=== PATIENT | female | born 1965 | race Caucasian/White ===

== ENCOUNTER 2020-08-22 16:43 | Inpatient (IN) ==
[2020-08-22] MEDS ORDERED: levoFLOXacin 750 MG/150 ML 750 MG/150 ML BAG IVPB ONE (16:59)
[2020-08-22] MEDS ORDERED: cefTRIAXone 1,000 MG in Water for inj. (sterile) 10 ML IVP ONE (17:15)
[2020-08-22] MEDS ORDERED: 0.9 % Sodium Chloride 1,000 ML IVC ONE (17:16)
[2020-08-22 17:32] LABS: Basophils % 0.4 %; Eosinophils # 0.1 K/mcL (0.0-0.6); Eosinophils % 0.7 %; Hematocrit 44.7 % (35.3-44.9); Hemoglobin 14.7 g/dL (11.5-15.4); Immature Granulocytes % 0.2 % (0-4); Lymphocytes # 1.6 K/mcL (0.6-4.6); Lymphocytes % 16.5 %; Mean Corpuscular HGB Conc 32.9 g/dL (31.6-35.5); Mean Corpuscular Hemoglobin 28.9 pg (28.0-33.3); Mean Corpuscular Volume 87.8 fL (83.0-100.0); Mean Platelet Volume 10.9 fL (9.4-12.4); Monocytes # 0.7 K/mcL (0.0-1.3); Monocytes % 7.2 %; Neutrophils # 7.4 K/mcL (1.6-8.9); Platelet Count 231 K/mcL (140-400); Red Blood Count 5.09 M/mcL (3.82-4.97); Red Cell Distribution Width 13.6 % (11.5-14.5); White Blood Count 9.9 K/mcL (4.3-11.1)
[2020-08-22 17:39] LABS: INR 1.3; Prothrombin Time 14.8 Seconds (9.4-12.1)
[2020-08-22 17:41] LABS: Activated Partial Thrombo Time 30.8 Seconds (26.0-36.0)
[2020-08-22] MEDS ORDERED: Ketorolac 15 MG/ML VIAL IVP ONE (17:45)
[2020-08-22 17:54] LABS: Alanine Aminotransferase 12 Units/L (7-52); Albumin 4.2 g/dL (3.5-5.7); Albumin/Globulin Ratio 1.2 (1.1-2.2); Alkaline Phosphatase 104 Units/L (34-104); Aspartate Amino Transferase 9 Units/L (13-39); BUN/Creatinine Ratio 13 (6-26); Bilirubin,Direct 0.1 mg/dL (0.0-0.2); Bilirubin,Indirect 0.3 mg/dL (0.0-1.0); Bilirubin,Total 0.4 mg/dL (0.3-1.0); Blood Urea Nitrogen 12 mg/dL (6-20); Calcium 9.4 mg/dL (8.6-10.3); Carbon Dioxide 26 mEq/L (23-29); Chloride 101 mEq/L (98-107); Globulin 3.5 g/dL (2.4-3.5); Glucose 131 mg/dL (70-105); Magnesium 1.7 mg/dL (1.6-2.6); Osmolality,Calculated 282 (280-300); Phosphorous 3.4 mg/dL (2.7-4.5); Potassium 3.6 mEq/L (3.5-5.1); Sodium 135 mEq/L (136-145); Total Protein 7.7 g/dL (6.4-8.9); Troponin I < 0.03 ng/mL (< 0.04); eGFR For African Americans > 60 (> 60); eGFR For Non-African Americans > 60 (> 60)
[2020-08-22] MEDS ORDERED: Naloxone 0.4 MG/ML INJ IVP PRN (19:18)
[2020-08-22] MEDS ORDERED: Fluticasone Propionate Nasal 50 MCG/SPRAY BOTTLE NS PRN (20:15)
[2020-08-22] MEDS ORDERED: D5% in Water 1,000 ML IVC PRN (20:15)
[2020-08-22] MEDS ORDERED: Albuterol 2.5 MG/3 ML NEBULIZER IH PRN (20:15)
[2020-08-22] MEDS ORDERED: *HR* Dextrose 50 % in Water (Vial) 50 ML VIAL IVP PRN (20:15)
[2020-08-22] MEDS ORDERED: Dextrose Gel 15 GM/37.5 ML TUBE PO PRN ×2 (20:15)
[2020-08-22] MEDS ORDERED: Ipratropium/Albuterol Neb 3 ML IH PRN (20:19)
[2020-08-22] MEDS ORDERED: 0.9 % Sodium Chloride 1,000 ML IVC SCH (20:30)
[2020-08-22] MEDS: Insulin LISPRO 300 UNITS/3 ML VIAL SUBQ SCH (21:37)
[2020-08-22] MEDS: Pregabalin 75 MG CAPSULE PO SCH (21:37)
[2020-08-22] MEDS: Latanoprost 2.5 ML BOTTLE BOTH EYES SCH (21:38)
[2020-08-22] MEDS: Acetaminophen 325 MG TABLET PO PRN (21:49)
[2020-08-23] MEDS: Ondansetron ODT 4 MG TAB.RAPDIS SL SCH ×4 (00:05→19:08)
[2020-08-23] MEDS: *HR* Heparin 5,000 UNIT/ML VIAL SQ SCH ×3 (00:06→19:05)
[2020-08-23 01:08] LABS: Basophils # 0.1 K/mcL (0.0-0.2); Basophils % 0.6 %; Eosinophils # 0.2 K/mcL (0.0-0.6); Eosinophils % 2.6 %; Hematocrit 41.7 % (35.3-44.9); Hemoglobin 13.7 g/dL (11.5-15.4); Immature Granulocytes % 0.5 % (0-4); Lymphocytes # 2.1 K/mcL (0.6-4.6); Lymphocytes % 24.7 %; Mean Corpuscular HGB Conc 32.9 g/dL (31.6-35.5); Mean Corpuscular Volume 88.2 fL (83.0-100.0); Mean Platelet Volume 10.7 fL (9.4-12.4); Monocytes # 0.8 K/mcL (0.0-1.3); Monocytes % 8.9 %; Neutrophils # 5.3 K/mcL (1.6-8.9); Platelet Count 215 K/mcL (140-400); Red Blood Count 4.73 M/mcL (3.82-4.97); Red Cell Distribution Width 13.6 % (11.5-14.5); Segmented Neutrophils % 62.7 %; White Blood Count 8.5 K/mcL (4.3-11.1)
[2020-08-23 01:26] LABS: BUN/Creatinine Ratio 13 (6-26); Blood Urea Nitrogen 12 mg/dL (6-20); Calcium 8.6 mg/dL (8.6-10.3); Carbon Dioxide 25 mEq/L (23-29); Chloride 103 mEq/L (98-107); Glucose 93 mg/dL (70-105); Osmolality,Calculated 281 (280-300); Potassium 3.6 mEq/L (3.5-5.1); Sodium 136 mEq/L (136-145); eGFR For African Americans > 60 (> 60); eGFR For Non-African Americans > 60 (> 60)
[2020-08-23] MEDS: Acetaminophen 325 MG TABLET PO PRN (06:00)
[2020-08-23] MEDS: Insulin LISPRO 300 UNITS/3 ML VIAL SUBQ SCH ×4 (07:36→20:55)
[2020-08-23] MEDS: Cholecalciferol (D-3) 1,000 UNIT (25MCG) TABLET PO SCH (09:25)
[2020-08-23] MEDS: PARoxetine 20 MG TABLET PO SCH (09:26)
[2020-08-23] MEDS: Pregabalin 75 MG CAPSULE PO SCH ×2 (09:26→20:51)
[2020-08-23] MEDS: Aspirin Enteric Coated 81 MG Tablet PO SCH (09:27)
[2020-08-23] MEDS: cefTRIAXone 2,000 MG in Water for inj. (sterile) 20 ML IVP SCH ×2 (19:05→21:59)
[2020-08-23] MEDS ORDERED: Lactulose Oral Soln 20 GM/30 ML UDC PO SCH (21:00)
[2020-08-23] MEDS: Latanoprost 2.5 ML BOTTLE BOTH EYES SCH (21:54)
[2020-08-23] MEDS ORDERED: cefTRIAXone 2,000 MG in Water for inj. (sterile) 20 ML IVP SCH (22:00)
[2020-08-24] MEDS: *HR* Heparin 5,000 UNIT/ML VIAL SQ SCH ×2 (00:35→08:15)
[2020-08-24] MEDS: Ondansetron ODT 4 MG TAB.RAPDIS SL SCH ×2 (00:36→08:15)
[2020-08-24 03:40] LABS: Basophils % 0.6 %; Eosinophils # 0.4 K/mcL (0.0-0.6); Eosinophils % 5.2 %; Hemoglobin 13.5 g/dL (11.5-15.4); Immature Granulocytes % 0.1 % (0-4); Lymphocytes # 2.7 K/mcL (0.6-4.6); Lymphocytes % 39.4 %; Mean Corpuscular HGB Conc 32.9 g/dL (31.6-35.5); Mean Corpuscular Hemoglobin 29.3 pg (28.0-33.3); Mean Corpuscular Volume 89.1 fL (83.0-100.0); Mean Platelet Volume 10.6 fL (9.4-12.4); Monocytes # 0.7 K/mcL (0.0-1.3); Monocytes % 9.7 %; Platelet Count 224 K/mcL (140-400); Red Cell Distribution Width 13.8 % (11.5-14.5); White Blood Count 6.7 K/mcL (4.3-11.1)
[2020-08-24 06:14] LABS: BUN/Creatinine Ratio 14 (6-26); Blood Urea Nitrogen 12 mg/dL (6-20); Calcium 8.5 mg/dL (8.6-10.3); Carbon Dioxide 23 mEq/L (23-29); Chloride 107 mEq/L (98-107); Glucose 109 mg/dL (70-105); Osmolality,Calculated 290 (280-300); Sodium 140 mEq/L (136-145); eGFR For African Americans > 60 (> 60); eGFR For Non-African Americans > 60 (> 60)
[2020-08-24 08:03] VITALS: BP 131/76
[2020-08-24] MEDS: Insulin LISPRO 300 UNITS/3 ML VIAL SUBQ SCH (08:09)
[2020-08-24] MEDS: Pregabalin 75 MG CAPSULE PO SCH (08:15)
[2020-08-24] MEDS: PARoxetine 20 MG TABLET PO SCH (08:15)
[2020-08-24] MEDS: Aspirin Enteric Coated 81 MG Tablet PO SCH (08:15)
[2020-08-24] MEDS: Cholecalciferol (D-3) 1,000 UNIT (25MCG) TABLET PO SCH (08:15)
== END 2020-08-24 10:38 | disposition home or self-care (01) | DRG 463 ==
LOC: 3ANU 16:43 → EMEROOARM 16:43 → SUATTDRO 19:30 → 3ANU 20:21
PROVIDERS: ADMIT General Practice; ATTEND Student in an Organized Health Care Education/Training Program